=== PATIENT | female | born 1990 | race Caucasian/White ===

== ENCOUNTER → 2019-05-05 | Outpatient (CLI) | payer OTHER ==
--- NOTE | 2019-05-05 10:38 | RAD ---
EXAM: Obstetrics sonogram. HISTORY: Unsure dates. TECHNIQUE: Sonographic imaging of a gravid uterus was performed. COMPARISON: None. FINDINGS: There is a single intrauterine fetus in cephalic presentation with a heart rate of 141 bpm. There is a grade 1 posterior placenta without evidence of placenta previa. The cervix is partially obscured but closed. The amniotic fluid index is normal at 9.7 cm. The anatomy is not formally assessed. The biparietal diameter is 8.3 cm, corresponding with 33 weeks and 2 days. The head circumference is 30.9 cm, corresponding with 34 weeks and 3 days. The abdominal circumference is 29.4 cm, corresponding with 33 weeks and 3 days. The femoral length is 6.5 cm, corresponding with 33 weeks and 5 days. The estimated gestational age based on combined ultrasound measurements is 33 weeks and 5 days and the estimated weight is 2229 g. The estimated due date is 06/18/2019. IMPRESSION: 1. Single intrauterine fetus with with a normal heart rate in vertex presentation with an estimated gestational age based on ultrasound measurements of 33 weeks and 5 days. 2. Note is made that the anatomy was not formally assessed on this exam. Electronically signed by: Maria Griffith MD (05/05/2019 10:35 AM) [id number]
== END | disposition home or self-care (01) ==
LOC: US 08:56 → EEVIPCON 08:56
PROVIDERS: ATTEND Preventive Medicine Occupational Medicine
DX: O26.843 Uterine size-date discrepancy, third trimester (principal); Z3A.33 33 weeks gestation of pregnancy
CPT/HCPCS: 76805